=== PATIENT | female | born 1995 | race African-American/Black ===

== ENCOUNTER 2021-09-15 16:13 | Observation (INO) ==
[2021-09-15 17:30] LABS: Hematocrit (blood only) 40.3 % (34.1-44.9); Hemoglobin 12.7 g/dl (12.0-16.0); Mean Corpuscular Hemoglobin 21.4 pg (25.0-34.0); Mean Corpuscular Hgb Conc 31.5 g/dL (32.0-36.0); RDW Coefficient of Variation 14.6 % (11.5-14.5); RDW Standard Deviation 34.9 fL (36.4-46.3); Red Blood Count 5.93 M/uL (3.93-5.22); White Blood Count 12.69 K/ul (4.8-10.8)
[2021-09-15 17:32] LABS: Appearance Urine Clear (Clear); Bilirubin Urine Negative (Negative); Blood Urine Negative (Negative); Color Urine Yellow; Glucose Urine UA Negative (Negative); Ketones Urine Negative (Negative); Leukocyte Esterase Urine Negative (Negative); Nitrite Urine Negative (Negative); Protein Urine Negative (Negative); Specific Gravity Urine 1.018 (1.000-1.030); Urobilinogen Urine Negative (Negative); pH Urine 6.5 (4.5-7.5)
--- NOTE | 2021-09-15 17:34 | Emergency Department Note ---
Impression & Plan Acute appendicitis with generalized peritonitis ED Provider Note CHIEF COMPLAINT: Lower abdominal pain HISTORY OF PRESENT ILLNESS: Deni Randhawa is a 26 year old female who presents to the Emergency Department for evaluation of sharp, stabbing pains radiating across her lower abdomen and suprapubic region which has been worsening since yesterday morning. Initially, the patient states that she began with dull pains to the area, however they have now become more sharp and severe. Currently, she rates her discomfort as a 7/10 which worsens with palpation of the area and with attempts of movement. She did take a dose of ibuprofen yesterday without relief. She does state that she has felt feverish but has not taken a temperature. The patient does note an area of pain to her right lower paraspinal musculature which started at the same time as her abdominal pain as well. She does state t hat she has had a bit more urinary frequency but otherwise denies increased urgency of urination, dysuria, or hematuria. The patient otherwise denies headache, sore throat, neck pain, chest pain, respiratory difficulties, nausea, vomiting or diarrhea. Her last bowel movement was this morning and was normal for her, no hematochezia or melena. The patient's LMP was last week which was normal for her. She is sexually active with 1 male partner and denies concerns for STDs. No vaginal pain, itching, burning, lesions or abnormal discharge/bleeding. No other acute complaints. REVIEW OF SYSTEMS: 10 systems were reviewed and were negative unless otherwise stated in HPI as above PHYSICAL EXAM: VITALS: Vitals are noted on the nurse's note and reviewed by myself. Vital signs stable. General: Resting in bed, no acute distress HEENT: Normocephalic, PERRL, EOMI, mucous membranes moist, oropharynx clear Neck: Supple, no lymphadenopathy, non-tender, ROM intact without pain Resp: Good inspiratory effort on room air, lung sounds clear bilaterally CV: Regular rate and rhythm, normal S1-S2, peripheral pulses palpated Back: Mild tenderness to palpation over the right lower paraspinal musculature. No tenderness to palpation or percussion over the bilateral CVAs Abd: Soft, non-distended, tender to palpation generally about the entire abdomen, most significant over the bilateral lower quadrants and suprapubic area with some guarding and rebound, no rigidity MSK: Moving all extremities without apparent pain or difficulty Neuro: Awake, alert and oriented x 3, interacting and answering questions appropriately Differential diagnosis includes Etiologies such as appendicitis, diverticulitis, obstruction, inflammatory bowel disease, renal colic, PUD, biliary pathology, pancreatitis, mesenteric ischemia, aortic pathology, infections, genitourinary, UTI, perforated viscus, as well as others were entertained. EMERGENCY DEPARTMENT COURSE: Physical exam and history were performed. Nursing triage notes, EMR, and medication list were personally reviewed. Patient appears to have sharp, stabbing pains radiating across her lower abdomen and suprapubic region which has been worsening since yesterday morning. Additional history as noted above. See physical exam as described above. The patient was offered medication. She was given Tylenol 1000 mg. After urine test came back negative, IV access was established and she was given Toradol 30 mg and NSS 1 L. Labs were obtained and reviewed by myself as below. Of note leukocytosis with a WBC of 12.69. No concern for anemia with hemoglobin 12.7. Electrolytes WNL. Renal indices stable. LFTs nondiagnostic. Lipase not elevated at 13. Urinalysis not indicative of acute infection. Urine test negative. COVID19 negative. CAT scan of the abdomen/pelvis were obtained and reviewed by radiologist myself as below. Findings were consistent with severe acute appendicitis with indistinctness of the appendiceal wall at the tip of the appendix, perforation not excluded. No organized fluid collection seen to suggest abscess. Additional findings as listed below. Upon reevaluation, the patient was feeling mildly improved after receiving the medications but was still having pain. I discussed the results of the above findings with her at bedside. I did contact Dr. Amato of general surgery who agreed to evaluate the patient. Please see his documentation for additional plan and disposition. The patient verbalized her understanding and agreement with the treatment plan as above. The chart was completed utilizing [employer] Speech Voice Recognition Software. Grammatical errors, random word insertions, pronoun errors, and incomplete sentences are an occasional consequence of this system due to software limitations, ambient noise, and hardware issues. Any formal questions or concerns about the content, text, or information contained within the body of this dictation should be directly addressed to the provider for clarification. Past Med/Surg History Medical History Obesity Surgical History No pertinent past surgical history Social History Smoking Status: Never smoker Preferred Language: Finnish Feels Safe at Home: Yes Allergies Allergies Allergy/AdvReac Type Severity Reaction Status Date / Time No Known Allergies Allergy Verified 09/15/21 19:29 Home Meds Home Medications Medication Instructions Recorded Confirmed No Known Home Medications 06/02/20 09/15/21 Results & Data (ED) Vital Signs Vital Signs - 24 hr 09/15/21 16:14 09/15/21 18:14 09/15/21 20:00 Temperature 37.2 C 36.8 C Temperature Source Temporal Artery Scan Oral Pulse Rate 105 H Pulse Rate [Apical] Pulse Rate [Finger] 66 Pulse Rhythm [Apical] Respiratory Rate 16 18 16 Respiratory Effort / Characteristics Respiratory Depth Respiratory Pattern Blood Pressure 111/71 Blood Pressure [Left Arm] 116/71 106/67 Blood Pressure Mean 84 Blood Pressure Mean [Left Arm] 86 80 Pulse Oximetry 96 100 100 Oxygen Delivery Method Room Air Room Air Oxygen Flow Rate Sepsis Recent Fever Within 48 Hours No Sepsis New/Unexplained Change in Mental Status No Sepsis Action Taken by Nursing No Action Required 09/15/21 22:48 09/15/21 22:55 09/15/21 23:05 Temperature 36.4 C L Temperature Source Temporal Artery Scan Pulse Rate Pulse Rate [Apical] 97 H 72 77 Pulse Rate [Finger] Pulse Rhythm [Apical] Regular Regular Regular Respiratory Rate 16 17 17 Respiratory Effort / Characteristics Non-Labored Non-Labored Non-Labored Respiratory Depth Normal Normal Normal Respiratory Pattern Regular Regular Regular Blood Pressure Blood Pressure [Left Arm] 114/76 102/67 108/73 Blood Pressure Mean Blood Pressure Mean [Left Arm] 88 78 84 Pulse Oximetry 98 99 98 Oxygen Delivery Method Oxymask Oxymask Oxymask Oxygen Flow Rate 10 6 6 Sepsis Recent Fever Within 48 Hours Sepsis New/Unexplained Change in Mental Status Sepsis Action Taken by Nursing Laboratory Data Result diagrams: 09/15/21 17:17 09/15/21 17:17 Lab Results 09/15/21 09/15/21 09/15/21 Range/Units 17:00 17:00 17:17 WBC 12.69 H (4.8-10.8) K/ul RBC 5.93 H (3.93-5.22) M/uL Hgb 12.7 (12.0-16.0) g/dl Hct 40.3 (34.1-44.9) % MCV 68.0 L (80.0-100.0) fL MCH 21.4 L (25.0-34.0) pg MCHC 31.5 L (32.0-36.0) g/dL RDW Std Deviation 34.9 L (36.4-46.3) fL RDW Coeff of Blanca 14.6 H (11.5-14.5) % Plt Count 295 (130-400) K/uL MPV 11.5 (9.4-12.3) fL Immature Gran % (Auto) 0.5 % Neut % (Auto) 78.9 % Lymph % (Auto) 12.7 % Clayton % (Auto) 7.6 % Eos % (Auto) 0.0 % Baso % (Auto) 0.3 % Neut # (Auto) 10.02 H (1.4-6.5) K/uL Lymph # (Auto) 1.61 (1.2-3.4) K/uL Clayton # (Auto) 0.96 H (0.24-0.82) K/uL Eos # (Auto) 0.00 (0-0.50) K/uL Baso # (Auto) 0.04 (0-0.2) K/uL Immature Gran # (Auto) 0.06 H (0.00-0.02) K/uL Platelet Estimate Normal (Normal) Ovalocytes 1+ Sodium (136-145) mmol/L Potassium (3.5-5.1) mmol/L Chloride (98-107) mmol/L Carbon Dioxide (21-32) mmol/L Anion Gap (3-11) BUN (6-23) mg/dl Creatinine (0.6-1.2) mg/dl Est Cr Clr Drug Dosing ml/min Est GFR ( Amer) ml/min Est GFR (Non-Af Amer) ml/min BUN/Creatinine Ratio (10-20) Glucose (70-99(Fasting)) mg/dl Calcium (8.5-10.1) mg/dl Total Bilirubin (0.2-1.0) mg/dl AST (13-39) U/L ALT (7-52) U/L Alkaline Phosphatase (34-104) U/L Total Protein (6.0-8.3) gm/dl Albumin (3.4-5.0) gm/dl Globulin (2.5-4.0) gm/dl Albumin/Globulin Ratio (0.9-2) Lipase (11-82) U/L Urine Color Yellow Urine Appearance Clear (Clear) Urine pH 6.5 (4.5-7.5) Ur Specific [place] 1.018 (1.000-1.030) Urine Protein Negative (Negative) Urine Glucose (UA) Negative (Negative) Urine Ketones Negative (Negative) Urine Blood Negative (Negative) Urine Nitrite Negative (Negative) Urine Bilirubin Negative (Negative) Urine Urobilinogen Negative (Negative) Ur Leukocyte Esterase Negative (Negative) POC Ur Test NEG (NEG) SARS-CoV-2, RNA, NAAT (NEGATIVE) 09/15/21 09/15/21 Range/Units 17:17 Unknown WBC (4.8-10.8) K/ul RBC (3.93-5.22) M/uL Hgb (12.0-16.0) g/dl Hct (34.1-44.9) % MCV (80.0-100.0) fL MCH (25.0-34.0) pg MCHC (32.0-36.0) g/dL RDW Std Deviation (36.4-46.3) fL RDW Coeff of Blanca (11.5-14.5) % Plt Count (130-400) K/uL MPV (9.4-12.3) fL Immature Gran % (Auto) % Neut % (Auto) % Lymph % (Auto) % [place] % (Auto) % Eos % (Auto) % Baso % (Auto) % Neut # (Auto) (1.4-6.5) K/uL Lymph # (Auto) (1.2-3.4) K/uL [place] # (Auto) (0.24-0.82) K/uL Eos # (Auto) (0-0.50) K/uL Baso # (Auto) (0-0.2) K/uL Immature Gran # (Auto) (0.00-0.02) K/uL Platelet Estimate (Normal) Ovalocytes Sodium 135 L (136-145) mmol/L Potassium 3.8 (3.5-5.1) mmol/L Chloride 103 (98-107) mmol/L Carbon Dioxide 25 (21-32) mmol/L Anion Gap 7 (3-11) BUN 7 (6-23) mg/dl Creatinine 0.63 (0.6-1.2) mg/dl Est Cr Clr Drug Dosing 141.4 ml/min Est GFR ( Amer) 144.5 ml/min Est GFR (Non-Af Amer) 124.7 ml/min BUN/Creatinine Ratio 11.1 (10-20) Glucose 90 (70-99(Fasting)) mg/dl Calcium 8.7 (8.5-10.1) mg/dl Total Bilirubin 0.8 (0.2-1.0) mg/dl AST 16 (13-39) U/L ALT 16 (7-52) U/L Alkaline Phosphatase 55 (34-104) U/L Total Protein 7.6 (6.0-8.3) gm/dl Albumin 4.1 (3.4-5.0) gm/dl Globulin 3.5 (2.5-4.0) gm/dl Albumin/Globulin Ratio 1.2 (0.9-2) Lipase 13 (11-82) U/L Urine Color Urine Appearance (Clear) Urine pH (4.5-7.5) Ur Specific [place] (1.000-1.030) Urine Protein (Negative) Urine Glucose (UA) (Negative) Urine Ketones (Negative) Urine Blood (Negative) Urine Nitrite (Negative) Urine Bilirubin (Negative) Urine Urobilinogen (Negative) Ur Leukocyte Esterase (Negative) POC Ur Test (NEG) SARS-CoV-2, RNA, NAAT NEGATIVE (NEGATIVE) Administered Medications Discontinued Medications Bacitracin (Bacitracin Oint 15 Gm Tube) Confirm Administered Dose 45 appln .ROUTE .[employer] ONE Stop: 09/15/21 21:08 Last Admin: 09/15/21 22:24 Dose: 45 appln Documented By: CY Bupivacaine HCl (Bupivacaine 0.5 % 5 Mg/1 Ml Mpf 30ml Vial) Confirm Administered Dose 30 ml .ROUTE .[employer] ONE Stop: 09/15/21 21:08 Last Admin: 09/15/21 22:25 Dose: 12 ml Documented By: AUREA Sodium Chloride (Nss 1000ml) 1,000 mls @ 999 mls/hr IV .Q1H1M GERMAN Stop: 09/15/21 19:27 Last Infusion: 09/15/21 19:45 Dose: 0 mls/hr Documented By: Admin: 09/15/21 18:31 Dose: 999 mls/hr Documented By: HADLEY Cefoxitin Sodium (Mefoxin) 2,000 mg in 60 mls @ 100 mls/hr IV NOW STA Stop: 09/15/21 21:27 Last Admin: 09/15/21 21:39 Dose: 100 mls/hr Documented By: SHERLYN Ioversol (Optiray 320 100ml) 92 ml IV ONCE ONE Stop: 09/15/21 18:54 Last Admin: 09/15/21 18:55 Dose: 92 ml Documented By: RADHA Ketorolac Tromethamine (Ketorolac 30 Mg/Ml Vial) 30 mg IV NOW ONE Stop: 09/15/21 18:28 Last Admin: 09/15/21 18:31 Dose: 30 mg Documented By: HADLEY Lidocaine HCl (Lidocaine 1% Local 20 Ml Vial) Confirm Administered Dose 20 ml .ROUTE .[facility] ONE Stop: 09/15/21 21:08 Last Admin: 09/15/21 22:25 Dose: 12 ml Documented By: AUREA Imaging Data Radiologist's Impression: Abdomen/Pelvis CT 09/15/21 17:30 CT SCAN OF THE ABDOMEN AND PELVIS WITH IV CONTRAST CLINICAL HISTORY: Lower abdominal pain. COMPARISON STUDY: No priors. TECHNIQUE: Following the IV administration of 92 cc of Optiray 320, CT scan of the abdomen and pelvis is performed from the lung bases to the proximal femora. Images are reviewed in the axial, sagittal, and coronal planes. IV contrast was administered without complication. A dose lowering technique was utilized adhering to the principles of ALARA. CT DOSE: 382.98 mGy.cm FINDINGS: Lung bases: The heart is normal in size and without pericardial effusion. The lung bases are clear. Liver: The contrast-enhanced liver is normal in size, contour, and attenuation. There is no intrahepatic biliary ductal dilatation. The hepatic veins and portal veins are patent. Gallbladder: Unremarkable. Spleen: Normal in size and attenuation. Pancreas: Unremarkable. Adrenal glands: Unremarkable. Kidneys: The contrast enhanced kidneys are normal in size and without hydronephrosis. The kidneys enhance symmetrically. Abdominal vasculature: The abdominal aorta is normal in course and caliber. Bowel: There is no bowel obstruction. A large calcified appendicolith is seen on image #293. The appendix is markedly dilated and fluid-filled, measuring up to 1.7 cm diameter as seen on image #291. The previously wall is thickened and there is periappendiceal inflammation and fluid. Findings are consistent with acute appendicitis. There is indistinctness of the appendiceal wall at the tip of the appendix. Perforation is not excluded. No organized fluid collection is seen to suggest abscess. Peritoneum: There is a small volume of pelvic ascites. No intraperitoneal free air is seen. There is a fat-containing umbilical hernia. Lymphadenopathy: Enlarged right lower quadrant mesenteric lymph nodes measure up to 13 mm in short axis. These are likely reactive. Pelvic viscera: The bladder wall appears circumferentially thickened. The uterus is normal as visualized. There are bilateral ovarian follicles. Free fluid is noted in the cul-de-sac. There is likely a reactive oophoritis of the right ovary secondary to adjacent appendicitis. Skeletal structures: No lytic or blastic lesions are seen. IMPRESSION: 1. Findings are consistent with severe acute appendicitis as detailed above. 2. There is indistinctness of the appendiceal wall at the tip of the appendix. Perforation is not excluded. 3. No organized fluid collection is seen to suggest abscess. 4. The bladder wall appears circumferentially thickened. Correlate with clinical findings and urinalysis. 5. There is a reactive oophoritis of the right ovary secondary to adjacent appendicitis. 6. Mildly enlarged right lower quadrant mesenteric lymph nodes and a small volume of pelvic ascites are likely reactive. ACT 112: Negative or not required by law. Electronically signed by: Enrique Mckay M.D. 09/15/2021 7:23 PM Discharge Plan Visit Data Chief Complaint: Abdominal Pain Stated Complaint: ABDOMINAL PAIN POSSIBLE FEVER ED Provider: Jacquelyn Reyes ED Midlevel Provider: Loretta Newman Discharge Problem: Acute appendicitis with generalized peritonitis Patient Disposition: Being Evaluated by Surgeon Discharge Instructions Interventions: ED Discharge Assessment Last Done: 09/15/21 21:13
[2021-09-15 17:54] LABS: Basophils # (auto) 0.04 K/uL (0-0.2); Basophils % (auto) 0.3 %; Immature Granulocytes # (auto) 0.06 K/uL (0.00-0.02); Immature Granulocytes % (auto) 0.5 %; Lymphocytes # (auto) 1.61 K/uL (1.2-3.4); Lymphocytes % (auto) 12.7 %; Mean Platelet Volume 11.5 fL (9.4-12.3); Monocytes # (auto) 0.96 K/uL (0.24-0.82); Monocytes % (auto) 7.6 %; Neutrophils # (auto) 10.02 K/uL (1.4-6.5); Neutrophils % (auto) 78.9 %; Ovalocytes 1+; Platelet Count 295 K/uL (130-400); Platelet Estimate Normal (Normal)
[2021-09-15 17:57] LABS: Albumin Globulin Ratio 1.2 (0.9-2); Albumin Level 4.1 gm/dl (3.4-5.0); BUN Creatinine Ratio 11.1 (10-20); Bilirubin,Total 0.8 mg/dl (0.2-1.0); Calcium 8.7 mg/dl (8.5-10.1); Creatinine Clr Calc Pharmacy 141.4 ml/min; Est GFR (African American) 144.5 ml/min; Est GFR (Non-African American) 124.7 ml/min; Globulin 3.5 gm/dl (2.5-4.0); Potassium 3.8 mmol/L (3.5-5.1); Total Protein 7.6 gm/dl (6.0-8.3)
[2021-09-15] MEDS ORDERED: SODIUM CHLORIDE 0.9% 1000ML 1,000 ML IV SCH (18:27)
[2021-09-15] MEDS ORDERED: KETOROLAC 30 MG/ML VIAL IV ONE (18:27)
[2021-09-15] MEDS ORDERED: OPTIRAY 320 100ml IV ONE (18:53)
--- NOTE | 2021-09-15 19:25 | CT Scan Report ---
CT SCAN OF THE ABDOMEN AND PELVIS WITH IV CONTRAST CLINICAL HISTORY: Lower abdominal pain. COMPARISON STUDY: No priors. TECHNIQUE: Following the IV administration of 92 cc of Optiray 320, CT scan of the abdomen and pelvi s is performed from the lung bases to the proximal femora. Images are reviewed in the axial, sagittal , and coronal planes. IV contrast was administered without complication. A dose lowering technique wa s utilized adhering to the principles of ALARA. CT DOSE: 382.98 mGy.cm FINDINGS: Lung bases: The heart is normal in size and without pericardial effusion. The lung bases are clear. Liver: The contrast-enhanced liver is normal in size, contour, and attenuation. There is no intrahepa tic biliary ductal dilatation. The hepatic veins and portal veins are patent. Gallbladder: Unremarkable. Spleen: Normal in size and attenuation. Pancreas: Unremarkable. Adrenal glands: Unremarkable. Kidneys: The contrast enhanced kidneys are normal in size and without hydronephrosis. The kidneys enh ance symmetrically. Abdominal vasculature: The abdominal aorta is normal in course and caliber. Bowel: There is no bowel obstruction. A large calcified appendicolith is seen on image #293. The appe ndix is markedly dilated and fluid-filled, measuring up to 1.7 cm diameter as seen on image #291. The previously wall is thickened and there is periappendiceal inflammation and fluid. Findings are consi stent with acute appendicitis. There is indistinctness of the appendiceal wall at the tip of the appe ndix. Perforation is not excluded. No organized fluid collection is seen to suggest abscess. Peritoneum: There is a small volume of pelvic ascites. No intraperitoneal free air is seen. There is a fat-containing umbilical hernia. Lymphadenopathy: Enlarged right lower quadrant mesenteric lymph nodes measure up to 13 mm in short ax is. These are likely reactive. Pelvic viscera: The bladder wall appears circumferentially thickened. The uterus is normal as visuali zed. There are bilateral ovarian follicles. Free fluid is noted in the cul-de-sac. There is likely a reactive oophoritis of the right ovary secondary to adjacent appendicitis. Skeletal structures: No lytic or blastic lesions are seen. IMPRESSION: 1. Findings are consistent with severe acute appendicitis as detailed above. 2. There is indistinctness of the appendiceal wall at the tip of the appendix. Perforation is not exc luded. 3. No organized fluid collection is seen to suggest abscess. 4. The bladder wall appears circumferentially thickened. Correlate with clinical findings and urinaly sis. 5. There is a reactive oophoritis of the right ovary secondary to adjacent appendicitis. 6. Mildly enlarged right lower quadrant mesenteric lymph nodes and a small volume of pelvic ascites a re likely reactive. ACT 112: Negative or not required by law. Electronically signed by: Enrique Mckay M.D. 09/15/2021 7:23 PM
--- NOTE | 2021-09-15 20:43 | Surgery Consultation ---
Date of Consultation September 15, 2021 Assessment & Plan (1) Acute appendicitis with generalized peritonitis: pt is a 26 year-old female who presents to ER with one day history lower abdominal pain, IMP: acute appendicitis, plan, I recommend to do laparoscopic appendectomy, possible open , D/w benefits, risks and alternatives of the surgery, the risks - infection, bleeding, abscess, injury other organs, bowel obstruction, incisional hernia, pt understood, she agrees with surgery, she signed informed consent, I answered all questions, pre- op iv antibiotic, History of Present Illness Reason for Consultation: lower abdominal pain Requesting Physician: Jacquelyn Carlson History of Present Illness CHIEF COMPLAINT: Lower abdominal pain HISTORY OF PRESENT ILLNESS: Deni Randhawa is a 26 year old female who presents to the Emergency Department for evaluation of sharp, stabbing pains radiating across her lower abdomen and suprapubic region which has been worsening since yesterday morning. Initially, the patient states that she began with dull pains to the area, however they have now become more sharp and severe. Currently, she rates her discomfort as a 7/10 which worsens with palpation of the area and with attempts of movement. She did take a dose of ibuprofen yesterday without relief. She does state that she has felt feverish but has not taken a temperature. The patient does note an area of pain to her right lower paraspinal musculature which started at the same time as her abdominal pain as well. She does state that she has had a bit more urinary frequency but otherwise denies increased urgency of urination, dysuria, or hematuria. The patient otherwise denies headache, sore throat, neck pain, chest pain, respiratory difficulties, nausea, vomiting or diarrhea. Her last bowel movement was this morning and was normal for her, no hematochezia or melena. The patient's LMP was last week which was normal for her. She is sexually active with 1 male partner and denies concerns for STDs. No vaginal pain, itching, burning, lesions or abnormal discharge/bleeding. No other acute complaints. I ( Lakia Amato MD ) got a call for consult acute appendicitis, I reviewed pt's H/P, labs, CT scan with pt, REVIEW OF SYSTEMS: [] systems were reviewed and were negative unless otherwise stated in HPI as above Past Med/Surg History Social History Smoking Status: Never smoker Preferred Language: Austrian Feels Safe at Home: Yes Allergies Allergies Allergy/AdvReac Type Severity Reaction Status Date / Time No Known Allergies Allergy Verified 09/15/21 19:29 Home Meds Home Medications Medication Instructions Recorded Confirmed No Known Home Medications 06/02/20 09/15/21 Results & Data (ED) Vital Signs Vital Signs - 24 hr 09/15/21 16:14 09/15/21 18:14 Temperature 37.2 C Temperature Source Temporal Artery Scan Pulse Rate 105 H Respiratory Rate 16 18 Blood Pressure 111/71 Blood Pressure [Left Arm] 116/71 Blood Pressure Mean 84 Blood Pressure Mean [Left Arm] 86 Pulse Oximetry 96 100 Oxygen Delivery Method Room Air Sepsis Recent Fever Within 48 Hours No Sepsis New/Unexplained Change in Mental Status No Sepsis Action Taken by Nursing No Action Required Laboratory Data Result diagrams: 09/15/21 17:17 09/15/21 17:17 Lab Results 09/15/21 09/15/21 09/15/21 Range/Units 17:00 17:00 17:17 WBC 12.69 HD (4.8-10.8) K/ul RBC 5.93 H (3.93-5.22) M/uL Hgb 12.7 (12.0-16.0) g/dl Hct 40.3 (34.1-44.9) % MCV 68.0 L (80.0-100.0) fL MCH 21.4 L (25.0-34.0) pg MCHC 31.5 L (32.0-36.0) g/dL RDW Std Deviation 34.9 L (36.4-46.3) fL RDW Coeff of Blanca 14.6 H (11.5-14.5) % Plt Count 295 (130-400) K/uL MPV 11.5 (9.4-12.3) fL Immature Gran % (Auto) 0.5 % Neut % (Auto) 78.9 % Lymph % (Auto) 12.7 % Blaine % (Auto) 7.6 % Eos % (Auto) 0.0 % Baso % (Auto) 0.3 % Neut # (Auto) 10.02 H (1.4-6.5) K/uL Lymph # (Auto) 1.61 (1.2-3.4) K/uL Blaine # (Auto) 0.96 H (0.24-0.82) K/uL Eos # (Auto) 0.00 (0-0.50) K/uL Baso # (Auto) 0.04 (0-0.2) K/uL Immature Gran # (Auto) 0.06 H (0.00-0.02) K/uL Platelet Estimate Normal (Normal) Ovalocytes 1+ Sodium (136-145) mmol/L Potassium (3.5-5.1) mmol/L Chloride (98-107) mmol/L Carbon Dioxide (21-32) mmol/L Anion Gap (3-11) BUN (6-23) mg/dl Creatinine (0.6-1.2) mg/dl Est Cr Clr Drug Dosing ml/min Est GFR ( Amer) ml/min Est GFR (Non-Af Amer) ml/min BUN/Creatinine Ratio (10-20) Glucose (70-99(Fasting)) mg/dl Calcium (8.5-10.1) mg/dl Total Bilirubin (0.2-1.0) mg/dl AST (13-39) U/L ALT (7-52) U/L Alkaline Phosphatase (34-104) U/L Total Protein (6.0-8.3) gm/dl Albumin (3.4-5.0) gm/dl Globulin (2.5-4.0) gm/dl Albumin/Globulin Ratio (0.9-2) Lipase (11-82) U/L Urine Color Yellow Urine Appearance Clear (Clear) Urine pH 6.5 (4.5-7.5) Ur Specific [place] 1.018 (1.000-1.030) Urine Protein Negative (Negative) Urine Glucose (UA) Negative (Negative) Urine Ketones Negative (Negative) Urine Blood Negative (Negative) Urine Nitrite Negative (Negative) Urine Bilirubin Negative (Negative) Urine Urobilinogen Negative (Negative) Ur Leukocyte Esterase Negative (Negative) POC Ur Test NEG (NEG) 09/15/21 Range/Units 17:17 WBC (4.8-10.8) K/ul RBC (3.93-5.22) M/uL Hgb (12.0-16.0) g/dl Hct (34.1-44.9) % MCV (80.0-100.0) fL MCH (25.0-34.0) pg MCHC (32.0-36.0) g/dL RDW Std Deviation (36.4-46.3) fL RDW Coeff of Blanca (11.5-14.5) % Plt Count (130-400) K/uL MPV D (9.4-12.3) fL Immature Gran % (Auto) % Neut % (Auto) % Lymph % (Auto) % Blaine % (Auto) % Eos % (Auto) % Baso % (Auto) % Neut # (Auto) (1.4-6.5) K/uL Lymph # (Auto) (1.2-3.4) K/uL Blaine # (Auto) (0.24-0.82) K/uL Eos # (Auto) (0-0.50) K/uL Baso # (Auto) (0-0.2) K/uL Immature Gran # (Auto) (0.00-0.02) K/uL Platelet Estimate (Normal) Ovalocytes Sodium 135 L (136-145) mmol/L Potassium 3.8 (3.5-5.1) mmol/L Chloride 103 (98-107) mmol/L Carbon Dioxide 25 (21-32) mmol/L Anion Gap 7 (3-11) BUN 7 (6-23) mg/dl Creatinine 0.63 (0.6-1.2) mg/dl Est Cr Clr Drug Dosing 141.4 ml/min Est GFR ( Amer) 144.5 ml/min Est GFR (Non-Af Amer) 124.7 ml/min BUN/Creatinine Ratio 11.1 (10-20) Glucose 90 (70-99(Fasting)) mg/dl Calcium 8.7 (8.5-10.1) mg/dl Total Bilirubin 0.8 (0.2-1.0) mg/dl AST 16 (13-39) U/L ALT 16 (7-52) U/L Alkaline Phosphatase 55 (34-104) U/L Total Protein 7.6 (6.0-8.3) gm/dl Albumin 4.1 (3.4-5.0) gm/dl Globulin 3.5 (2.5-4.0) gm/dl Albumin/Globulin Ratio 1.2 (0.9-2) Lipase 13 (11-82) U/L Urine Color Urine Appearance (Clear) Urine pH (4.5-7.5) Ur Specific [place] (1.000-1.030) Urine Protein (Negative) Urine Glucose (UA) (Negative) Urine Ketones (Negative) Urine Blood (Negative) Urine Nitrite (Negative) Urine Bilirubin (Negative) Urine Urobilinogen (Negative) Ur Leukocyte Esterase (Negative) POC Ur Test (NEG) Administered Medications Discontinued Medications Sodium Chloride (Nss 1000ml) 1,000 mls @ 999 mls/hr IV .Q1H1M GERMAN Stop: 09/15/21 19:27 Last Infusion: 09/15/21 19:45 Dose: 0 mls/hr Documented By: Admin: 09/15/21 18:31 Dose: 999 mls/hr Documented By: KT Ioversol (Optiray 320 100ml) 92 ml IV ONCE ONE Stop: 09/15/21 18:54 Last Admin: 09/15/21 18:55 Dose: 92 ml Documented By: [facility] Ketorolac Tromethamine (Ketorolac 30 Mg/Ml Vial) 30 mg IV NOW ONE Stop: 09/15/21 18:28 Last Admin: 09/15/21 18:31 Dose: 30 mg Documented By: HADLEY Imaging Data Radiologist's Impression: Abdomen/Pelvis CT 09/15/21 17:30 CT SCAN OF THE ABDOMEN AND PELVIS WITH IV CONTRAST CLINICAL HISTORY: Lower abdominal pain. COMPARISON STUDY: No priors. TECHNIQUE: Following the IV administration of 92 cc of Optiray 320, CT scan of the abdomen and pelvis is performed from the lung bases to the proximal femora. Images are reviewed in the axial, sagittal, and coronal planes. IV contrast was administered without complication. A dose lowering technique was utilized adhering to the principles of ALARA. CT DOSE: 382.98 mGy.cm FINDINGS: Lung bases: The heart is normal in size and without pericardial effusion. The lung bases are clear. Liver: The contrast-enhanced liver is normal in size, contour, and attenuation. There is no intrahepatic biliary ductal dilatation. The hepatic veins and portal veins are patent. Gallbladder: Unremarkable. Spleen: Normal in size and attenuation. Pancreas: Unremarkable. Adrenal glands: Unremarkable. Kidneys: The contrast enhanced kidneys are normal in size and without hydron ephrosis. The kidneys enhance symmetrically. Abdominal vasculature: The abdominal aorta is normal in course and caliber. Bowel: There is no bowel obstruction. A large calcified appendicolith is seen on image #293. The appendix is markedly dilated and fluid-filled, measuring up to 1.7 cm diameter as seen on image #291. The previously wall is thickened and there is periappendiceal inflammation and fluid. Findings are consistent with acute appendicitis. There is indistinctness of the appendiceal wall at the tip of the appendix. Perforation is not excluded. No organized fluid collection is seen to suggest abscess. Peritoneum: There is a small volume of pelvic ascites. No intraperitoneal free air is seen. There is a fat-containing umbilical hernia. Lymphadenopathy: Enlarged right lower quadrant mesenteric lymph nodes measure up to 13 mm in short axis. These are likely reactive. Pelvic viscera: The bladder wall appears circumferentially thickened. The uterus is normal as visualized. There are bilateral ovarian follicles. Free fluid is noted in the cul-de-sac. There is likely a reactive oophoritis of the right ovary secondary to adjacent appendicitis. Skeletal structures: No lytic or blastic lesions are seen. IMPRESSION: 1. Findings are consistent with severe acute appendicitis as detailed above. 2. There is indistinctness of the appendiceal wall at the tip of the appendix. Perforation is not excluded. 3. No organized fluid collection is seen to suggest abscess. 4. The bladder wall appears circumferentially thickened. Correlate with clinical findings and urinalysis. 5. There is a reactive oophoritis of the right ovary secondary to adjacent appendicitis. 6. Mildly enlarged right lower quadrant mesenteric lymph nodes and a small volume of pelvic ascites are likely reactive. Allergies Allergy/AdvReac Type Severity Reaction Status Date / Time No Known Allergies Allergy Verified 09/15/21 19:29 Home Medications Medication Instructions Recorded Confirmed Type No Known Home Medications 06/02/20 09/15/21 History Patient History Social History Smoking Status: Never smoker Preferred Language: Austrian Feels Safe at Home: Yes Review of Systems Constitutional: as per Subjective / HPI Eyes: as per Subjective / HPI Respiratory: as per Subjective / HPI Cardiovascular: as per Subjective / HPI Gastrointestinal: as per Subjective / HPI Genitourinary: as per Subjective / HPI Neurologic: as per Subjective / HPI Psychiatric: as per Subjective / HPI Endocrine: as per Subjective / HPI Hematologic / Lymphatic: as per Subjective / HPI Physical Exam Constitutional: WD/WN, vitals as above Eyes: PERRL, conjunctivae normal, anicteric sclerae Neck: trachea midline, no thyromegaly Respiratory: normal respiratory effort, lungs clear to auscultation Cardiovascular: RRR, no murmur, no edema Gastrointestinal (Abdomen): soft, tenderness at lower abdomen, with rebound pain, no distend, BS +, Musculoskeletal: no cyanosis or clubbing, extremities motor strength 5/5 Neurologic: patellar DTR's 2+ bilat, sensation intact Psychiatric: A+Ox3, euthymic affect Results & Data ([facility]) Vital Signs (Past 12 Hours) Vital Signs Temp Pulse Resp BP BP Pulse Ox O2 Del Method 09/15/21 18:14 18 116/71 100 Room Air 09/15/21 16:14 37.2 C 105 H 16 111/71 96 Laboratory Results Abnormal lab results 09/15/21 09/15/21 Range/Units 17:17 17:17 WBC 12.69 H (4.8-10.8) K/ul RBC 5.93 H (3.93-5.22) M/uL MCV 68.0 L (80.0-100.0) fL MCH 21.4 L (25.0-34.0) pg MCHC 31.5 L (32.0-36.0) g/dL RDW Std Deviation 34.9 L (36.4-46.3) fL RDW Coeff of Blanca 14.6 H (11.5-14.5) % Neut # (Auto) 10.02 H (1.4-6.5) K/uL Blaine # (Auto) 0.96 H (0.24-0.82) K/uL Immature Gran # (Auto) 0.06 H (0.00-0.02) K/uL Sodium 135 L (136-145) mmol/L
[2021-09-15] MEDS ORDERED: cefOXitin 2,000 MG/60 ML BAG IV STA (20:52)
--- NOTE | 2021-09-15 20:52 | History & Physical Bridge Note ---
Date of Service September 15, 2021 History & Physical Bridge Note I have examined the patient, reviewed the History & Physical and in the interval since the performance of the History & Physical I have noted the following changes of clinical significance: no changes noted
[2021-09-15] MEDS ORDERED: fentaNYL citrate 100 MCG/2 ML VIAL ONE ×2 (21:02→22:33)
[2021-09-15] MEDS ORDERED: HYDROmorphone INJ 1 MG/ML SYRINGE IV PRN (21:06)
[2021-09-15] MEDS ORDERED: ATROPINE SULFATE 0.1 MG/ML 10ML SYR IV PRN (21:06)
[2021-09-15] MEDS ORDERED: fentaNYL citrate 100 MCG/2 ML VIAL IV PRN (21:06)
[2021-09-15] MEDS ORDERED: ePHEDrine sulfate 50 MG/ML AMP IV PRN (21:06)
[2021-09-15] MEDS ORDERED: MEPERIDINE HCL 25 MG/ML CARP/VIAL IV PRN (21:06)
[2021-09-15] MEDS ORDERED: PHENYLEPHRINE 100MCG/ML 5ML SYR IV PRN (21:06)
[2021-09-15] MEDS ORDERED: ONDANSETRON INJ 2 MG/ML 2 ML VIAL IV PRN ×2 (21:06→23:44)
[2021-09-15] MEDS ORDERED: LABETALOL HCL IV 5 MG/ML 20ML IV PRN (21:06)
[2021-09-15] MEDS ORDERED: LIDOCAINE 1% LOCAL 20 ML VIAL ONE (21:07)
[2021-09-15] MEDS ORDERED: BACITRACIN OINT 15 GM TUBE ONE (21:07)
[2021-09-15] MEDS ORDERED: BUPIVACAINE 0.5 % 5 MG/1 ML MPF 30ML VIAL ONE (21:07)
--- NOTE | 2021-09-15 21:08 | Anesthesiology Consultation ---
Date of Service September 15, 2021 Assessment & Plan (1) Encounter for pre-operative examination: Chart Review Chart Review: Acceptable Risk for Surgery and Patient NOT seen in Pre Admission Testing Consults Requested none History Surgery Operation Date: 09/15/21 21:00 Proposed Procedures p Laparoscopic Appendectomy(Not Applicable) - Lakia mAato MD Height/Weight Height: 5 ft 4 in Weight: 82 kg Allergies Allergy/AdvReac Type Severity Reaction Status Date / Time No Known Allergies Allergy Verified 09/15/21 19:29 Medications Home Medications Medication Instructions Recorded Confirmed Last Taken No Known Home Medications 06/02/20 09/15/21 Unknown Past Medical History Medical History Obesity Social History Smoking Status: Never smoker Physical Exam Vital Signs Last Vital Signs Temp 37.2 C 09/15/21 16:14 Pulse 105 H 09/15/21 16:14 Resp 18 09/15/21 18:14 BP 116/71 09/15/21 18:14 Pulse Ox 100 09/15/21 18:14 O2 Del Method 09/15/21 18:14 Testing Laboratory Results 09/15/21 17:17 09/15/21 17:17 Urine Color Yellow 09/15/21 17:00 Urine Appearance Clear (Clear) 09/15/21 17:00 Urine pH 6.5 (4.5-7.5) 09/15/21 17:00 Ur Specific [place] 1.018 (1.000-1.030) 09/15/21 17:00 Urine Protein Negative (Negative) 09/15/21 17:00 Urine Glucose (UA) Negative (Negative) 09/15/21 17:00 Urine Ketones Negative (Negative) 09/15/21 17:00 Urine Nitrite Negative (Negative) 09/15/21 17:00 Ur Leukocyte Esterase Negative (Negative) 09/15/21 17:00 09/15/21 17:00 POC Ur Test NEG
[2021-09-15] MEDS ORDERED: MIDAZOLAM HCL 1 MG/ML 2ML VIAL ONE (21:20)
[2021-09-15] MEDS ORDERED: PROPOFOL IV EMULSION 10 MG/ML 20 ML VIAL IV ONE (21:42)
[2021-09-15] MEDS ORDERED: NEOSTIGMINE METHYLSULFATE 1 MG/ML 10ML VIAL ONE (21:42)
[2021-09-15] MEDS ORDERED: SUCCINYLCHOLINE 100MG/5ML SYR IV ONE (21:42)
[2021-09-15] MEDS ORDERED: ONDANSETRON INJ 2 MG/ML 2 ML VIAL ONE (21:42)
[2021-09-15] MEDS ORDERED: LIDOCAINE 2% MPF LOCAL 5 ML VIAL INFIL ONE (21:42)
[2021-09-15] MEDS ORDERED: DEXAMETHASONE SOD INJ 4 MG/ML VIAL ONE (21:42)
[2021-09-15] MEDS ORDERED: GLYCOPYRROLATE 0.2 MG/ML VIAL ONE (21:42)
[2021-09-15] MEDS ORDERED: ROCURONIUM BROMIDE 10 MG/ML 5 ML VIAL IV ONE (21:42)
[2021-09-15] MEDS ORDERED: KETOROLAC 30 MG/ML VIAL ONE (22:14)
--- NOTE | 2021-09-15 22:34 | Post Operative Brief Note ---
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
--- NOTE | 2021-09-15 23:38 | Anesthesiology Progress Note ---
Date of Service September 15, 2021 Anesthesia Post Procedure Vital Signs Vital Signs: Temp Pulse Pulse Pulse Resp BP BP 09/15/21 23:25 74 14 112/65 09/15/21 23:15 36.7 C 74 14 114/72 09/15/21 23:05 77 17 108/73 09/15/21 22:55 72 17 102/67 09/15/21 22:48 36.4 C L 97 H 16 114/76 09/15/21 20:00 36.8 C 66 16 106/67 09/15/21 18:14 18 116/71 09/15/21 16:14 37.2 C 105 H 16 111/71 Pulse Ox O2 Del Method O2 Flow Rate 09/15/21 23:25 93 Room Air 09/15/21 23:15 93 Room Air 09/15/21 23:05 98 Oxymask 6 09/15/21 22:55 99 Oxymask 6 09/15/21 22:48 98 Oxymask 10 09/15/21 20:00 100 Room Air 09/15/21 18:14 100 Room Air 09/15/21 16:14 96 Pain Intensity Bilateral Lower Abdomen: Pain Intensity: 2 Transfer of Care Handoff Completed per policy Notes Mental Status: alert / awake / arousable Patient Amnestic to Procedure: Yes Nausea / Vomiting: adequately controlled Pain: adequately controlled Airway Patency, RR, SpO2: stable & adequate BP & HR: stable & adequate Hydration State: stable & adequate Anesthetic Complications: no major complications apparent and Pt Satisfied with anesthetic care
[2021-09-15] MEDS ORDERED: oxyCODONE/ACETAMINOPHEN 5mg/325mg TAB PO PRN (23:44)
[2021-09-15] MEDS: HYDROmorphone INJ 0.5 MG/0.5 ML SYR IV PRN (23:59)
[2021-09-16] MEDS: LACTATED RINGER'S 1,000 ML IV SCH ×2 (00:01→05:41)
--- NOTE | 2021-09-16 03:36 | Operative Report (OR) ---
DATE OF OPERATION: 09/15/2021 PREOPERATIVE DIAGNOSIS: Acute appendicitis. POSTOPERATIVE DIAGNOSIS: Acute appendicitis. OPERATION: Laparoscopic appendectomy. SURGEON: Lakia Amato MD. ANESTHESIA: General. ESTIMATED BLOOD LOSS: About 10 mL FINDINGS: Acute appendicitis, significant inflammation on the appendix and some free fluid in the pe lvic area. COMPLICATIONS: None. INDICATIONS FOR THE PROCEDURE: This is a 26-year-old female who presented to ED with 1-day history o f lower abdominal pain. The patient had a CT scan diagnosis of acute appendicitis. I recommended to do laparoscopic appendectomy, possible open. I did talk to the patient about the benefit, risk, alt ernate procedure. I indicated the risks may include, but not limited to, such as bleeding, infection , abscess, injury to other organs, bowel obstruction, incisional hernia. The patient understands. S he signed informed consent and I answered all questions. DETAILS OF PROCEDURE: After we identified the patient and verified the procedure, we brought the pat ient to the OR, put the patient in the supine position on the OR table. The patient received SCD on bilateral legs to prevent DVT. Also, the patient received 2 grams of cefoxitin IV for prophylactic a ntibiotic. The patient received general anesthesia without difficulty. The abdomen was prepped and draped in routine sterile fashion. After timeout, I injected the local anesthesia by using 1% lidoca ine mixed with 0.5% Marcaine just above the umbilicus, then I made a small incision just above umbili cus, opened fascia, opened peritoneum. Under direct vision, put a Nanda trocar in, connected to CO2 to create pneumoperitoneum, flow rate at 6 liters per minute, pressure not more than 14 mmHg. Once we got a nice pneumoperitoneum, we put a camera in, looked around the abdomen. It showed normal finding on the small bowel and large bowel; however, the patient had significant inflammation on the appendix with enlarged appendix, confirmed diagnosis of acute appendicitis. Also, the patient has so me free fluid in the pelvic area. Once we confirmed the diagnosis, I put another two 5 mm trocars on the left lower quadrant area. Once all trocars were in, we used the grasper to hold the appendix an d used the Harmonic to take down the appendiceal. Then, we used a 45 mm Endo-RONALD stapler for transec tion on the base of appendix, rechecked the staple line intact and no leak, no active bleeding. Then , we removed the appendix through the catch bag. Then, we reinserted the Nanda trocar in, connected to CO2 to create pneumoperitoneum, again looked a round the abdomen, also we suctioned the free fluid in the pelvic area, rechecked the staple lines in tact. No active bleeding, no leak. Then, we removed all trocars under direct vision. No active ble eding from the trocar site. Pneumoperitoneum was released. Then I closed the umbilical incision fasc ial layer by using 0 Vicryl [id number] x2, closed subcutaneous layer by using 2-0 Vicryl interru ptedly, closed skin by using 4-0 Vicryl continuous running, closed another two 5 mm trocar site of sk in only by using 4-0 Vicryl. Then, we put the dressing on. The patient tolerated the procedure well . All instrument, needle and sponge counts were correct x2 at the end of the case. The patient was transferred to recovery room in stable condition. The specimen was sent to pathology. After the pro cedure, I did talk to the patient about the OR finding and the procedure we did, the patient christopher juanis. Job ID: [id number]
[2021-09-16 07:10] LABS: Hematocrit (blood only) 36.7 % (34.1-44.9); Hemoglobin 11.7 g/dl (12.0-16.0); Mean Corpuscular Hemoglobin 21.8 pg (25.0-34.0); Mean Corpuscular Hgb Conc 31.9 g/dL (32.0-36.0); Mean Corpuscular Volume 68.3 fL (80.0-100.0); RDW Coefficient of Variation 14.6 % (11.5-14.5); RDW Standard Deviation 35.5 fL (36.4-46.3); Red Blood Count 5.37 M/uL (3.93-5.22); White Blood Count 13.98 K/ul (4.8-10.8)
[2021-09-16 07:28] LABS: Mean Platelet Volume 10.5 fL (9.4-12.3); Platelet Count 278 K/uL (130-400)
[2021-09-16 07:38] LABS: Basophils # (auto) 0.02 K/uL (0-0.2); Basophils % (auto) 0.1 %; Immature Granulocytes # (auto) 0.07 K/uL (0.00-0.02); Immature Granulocytes % (auto) 0.5 %; Lymphocytes # (auto) 0.85 K/uL (1.2-3.4); Lymphocytes % (auto) 6.1 %; Microcytosis Present; Monocytes # (auto) 0.24 K/uL (0.24-0.82); Monocytes % (auto) 1.7 %; Neutrophils % (auto) 91.6 %; Ovalocytes 1+; Poikilocytosis Present
[2021-09-16] MEDS: HYDROmorphone INJ 0.5 MG/0.5 ML SYR IV PRN (08:20)
--- NOTE | 2021-09-16 11:55 | Surgery Progress Note ---
Date of Service September 16, 2021 Assessment & Plan (1) Acute appendicitis with generalized peritonitis: Plan: pt is a 26 year-old female who presents to ER with one day history lower abdominal pain, IMP: acute appendicitis, plan, I recommend to do laparoscopic appendectomy, possible open , D/w benefits, risks and alternatives of the surgery, the risks - infection, bleeding, abscess, injury other organs, bowel obstruction, incisional hernia, pt understood, she agrees with surgery, she signed informed consent, I answered all questions, pre- op iv antibiotic, 09/16/2021 11:53AM F/U S/P lap appy, POD 1 doing fine, tolerated diet, no nausea, no vomiting, no fever, pt wants to go home, post-op care instruction was given, F/U 2 weeks, Admission and Anticipated Discharge Date Admission Date: September 15, 2021 Subjective F/U S/P laparoscopic appendectomy, POID 1, pt is doing fine, feels better , less abdominal pain, tolerated diet, no nausea, no vomiting, no fever, Review of Systems Constitutional: as per Subjective / HPI Eyes: as per Subjective / HPI Respiratory: as per Subjective / HPI Cardiovascular: as per Subjective / HPI Gastrointestinal: as per Subjective / HPI Genitourinary: as per Subjective / HPI Neurologic: as per Subjective / HPI Psychiatric: as per Subjective / HPI Endocrine: as per Subjective / HPI Hematologic / Lymphatic: as per Subjective / HPI Physical Exam Constitutional: WD/WN, vitals as above Eyes: PERRL, conjunctivae normal, anicteric sclerae Neck: trachea midline, no thyromegaly Respiratory: normal respiratory effort, lungs clear to auscultation Cardiovascular: RRR, no murmur, no edema Gastrointestinal (Abdomen): soft, mild tenderness at incisions site, pablo incisions intact, no redness, abdomen, no distend, BS + Musculoskeletal: no cyanosis or clubbing, extremities motor strength 5/5 Neurologic: patellar DTR's 2+ bilat, sensation intact Psychiatric: A+Ox3, euthymic affect Results & Data ([facility]) Vital Signs (Past 12 Hours) Vital Signs Temp Pulse Resp BP Pulse Ox O2 Del Method 09/16/21 07:24 36.6 C 94 H 16 105/70 98 Room Air 09/16/21 03:00 36.6 C 97 H 16 103/69 93 Room Air 09/16/21 01:54 36.3 C L 74 16 104/69 93 Room Air 09/16/21 00:35 36.8 C 101 H 16 106/71 92 Room Air 09/16/21 00:05 37 C 89 16 110/72 93 Room Air Laboratory Results Abnormal lab results 09/15/21 09/15/21 09/16/21 Range/Units 17:17 17:17 06:58 WBC 12.69 H 13.98 H (4.8-10.8) K/ul RBC 5.93 H 5.37 H (3.93-5.22) M/uL Hgb 11.7 L (12.0-16.0) g/dl MCV 68.0 L 68.3 L (80.0-100.0) fL MCH 21.4 L 21.8 L (25.0-34.0) pg MCHC 31.5 L 31.9 L (32.0-36.0) g/dL RDW Std Deviation 34.9 L 35.5 L (36.4-46.3) fL RDW Coeff of Blanca 14.6 H 14.6 H (11.5-14.5) % Neut # (Auto) 10.02 H 12.80 H (1.4-6.5) K/uL Lymph # (Auto) 0.85 L (1.2-3.4) K/uL [place] # (Auto) 0.96 H (0.24-0.82) K/uL Immature Gran # (Auto) 0.06 H 0.07 H (0.00-0.02) K/uL Sodium 135 L (136-145) mmol/L
--- NOTE | 2021-09-17 08:42 | Discharge Summary (DS) ---
DATE OF ADMISSION: 09/15/2021 DATE OF DISCHARGE: 09/16/2021 ADMISSION DIAGNOSIS: Acute appendicitis. DISCHARGE DIAGNOSIS: Acute appendicitis. OPERATION: Laparoscopic appendectomy. SURGEON: Lakia Amato MD. DETAILS OF DISCHARGE SUMMARY: This is a 26-year-old female who presented to ED with a 1-day history of lower abdominal pain. The patient had a CT scan diagnosis of acute appendicitis. We took the pat ient to the OR, we did laparoscopic appendectomy. The patient tolerated the procedure well. After t he procedure, the patient was transferred to recovery room and later on transferred to regular floor. The patient is doing fine and the patient tolerated the diet, no nausea, no vomiting, no temperatur e. PHYSICAL EXAMINATION: VITAL SIGNS: Temperature is 36.6, respiratory rate is 16, heart rate 94, blood pressure 105/70, O2 s aturation 98% on room air. GENERAL: The patient is alert, awake, oriented x3. HEENT: Within normal limitation. NEUROLOGIC: Intact. NECK: No JVD. CHEST: Bilateral lung sounds clear. HEART: Normal S1 and S2. No murmur. ABDOMEN: Soft, mild tenderness on the incision site. No rebound pain. All incisions intact. No re dness. Bowel sounds positive. EXTREMITIES: No edema. The patient wanted to go home today. We gave the patient postop care instruction. I will follow up the patient in 2 weeks. The patient understands. I answered all questions. Job ID: [id number]
== END 2021-09-16 15:17 | disposition home or self-care (01) ==
LOC: ED 16:13 → 3W 21:07 → OR 21:07
DX: K35.20 Acute appendicitis with generalized peritonitis, without abscess